=== PATIENT | female | born 1980 | race Hispanic/Latino ===

== ENCOUNTER 2024-06-04 11:36 | Emergency (ER) | payer BC ==
[~2024-06-04] VITALS: Ht 160 cm; Wt 72.6 kg
[2024-06-04 11:37] VITALS: BP 117/72; PULSE 24; RESP 18
[2024-06-04] MEDS: DIPHENHYDRAMINE HCL 25 MG CAPSULE PO ONE (13:42)
[2024-06-04] MEDS: FAMOTIDINE 20MG TAB PO ONE (13:42)
== END 2024-06-04 14:27 | disposition home or self-care (01) ==
LOC: EDH 11:36
DX: T63.441A Toxic effect of venom of bees, accidental (unintentional), initial encounter (principal); R51.9 Headache, unspecified; Z88.0 Allergy status to penicillin; Z88.8 Allergy status to other drugs, medicaments and biological substances; Y92.89 Other specified places as the place of occurrence of the external cause
CPT/HCPCS: 99283; Q0163